=== PATIENT | male | born 1950 | race Caucasian/White ===

== ENCOUNTER 2023-08-24 16:02 | Inpatient (IN) | payer BC ==
[2023-08-24] MEDS ORDERED: dilTIAZem 125 MG/25 ML SDV ONE (16:07)
[2023-08-24] MEDS ORDERED: Furosemide 40 MG/4 ML VIAL ONE (16:29)
[2023-08-24 16:49] LABS: #Basophils 0.1 10x3/uL (0.0-0.2); #Monocytes 1.2 10x3/uL (0.0-1.1); #Neutrophils 11.1 10x3/uL (1.5-8.4); %Basophils 0.4 % (0.0-2.0); %Eosinophils 0.3 % (0.0-6.0); %Lymphocytes 9.4 % (18.0-47.0); %Monocytes 8.5 % (0.0-10.0); Hematocrit 39.2 % (38.8-50.0); Hemoglobin 13.2 g/dL (13.5-17.5); Mean Corpuscular HGB CONC 33.7 g/dL (32.0-36.0); Mean Corpuscular Hemoglobin 30.6 pg (27.0-33.0); Mean Platelet Volume 10.8 fl (7.4-10.4); Platelet Count 418 10x3/uL (150-450); RBC Distribution Width 12.2 % (11.5-14.5); Red Blood Cell (RBC) Count 4.31 10x6/uL (4.32-5.72); White Blood Cell (WBC) Count 13.8 10x3/uL (3.5-10.5)
[2023-08-24 17:01] LABS: ALT (SGPT) 101 U/L (8-55); AST (SGOT) 65 U/L (5-34); Albumin 3.7 g/dL (3.4-4.8); Alkaline Phosphatase 66 U/L (40-110); Anion Gap 17 mmol/L (10-20); BUN (Urea Nitrogen) 18 mg/dL (8.4-25.7); Bilirubin, Total 0.8 mg/dL (0.2-1.2); Calc. Creatinine Clearance 0 mL/min (70-130); Calcium 8.7 mg/dL (7.8-10.44); Carbon Dioxide 21 mmol/L (23-31); Chloride 100 mmol/L (98-107); Estimated GFR 86; Globulin 2.6 g/dL (2.4-3.5); Glucose 148 mg/dL (80-115); Protein, Total 6.3 g/dL (5.8-8.1); Sodium 134 mmol/L (136-145)
[2023-08-24 17:07] LABS: Troponin I 0.047 ng/mL (< 0.028)
[2023-08-24] MEDS ORDERED: Ondansetron PF 4 MG/2 ML Vial IVP PRN (17:32)
[2023-08-24] MEDS ORDERED: Acetaminophen 325 MG TAB PO PRN (17:32)
[2023-08-24 17:45] LABS: SARS-CoV-2 NAA Rapid Test Not Detected (NotDetected)
[2023-08-24 19:37] LABS: Troponin I 0.043 ng/mL (< 0.028)
[2023-08-24] MEDS ORDERED: dilTIAZem 125 MG in Sodium Chloride 0.9% 100 ML IVPB SCH (20:30)
[2023-08-24] MEDS: Apixaban 5 MG TAB PO SCH (20:45)
[2023-08-24 21:03] VITALS: BMI 30.5
[2023-08-25 04:54] LABS: #Eosinphils 0.1 10x3/uL (0.0-0.5); #Monocytes 1.2 10x3/uL (0.0-1.1); #Neutrophils 9.1 10x3/uL (1.5-8.4); %Basophils 0.3 % (0.0-2.0); %Eosinophils 0.9 % (0.0-6.0); %Lymphocytes 11.8 % (18.0-47.0); %Monocytes 9.7 % (0.0-10.0); %Neutrophils 76.5 % (40.0-75.0); Hematocrit 36.7 % (38.8-50.0); Hemoglobin 12.5 g/dL (13.5-17.5); Mean Corpuscular HGB CONC 34.1 g/dL (32.0-36.0); Mean Corpuscular Hemoglobin 30.9 pg (27.0-33.0); Mean Corpuscular Volume 90.6 fl (81.2-95.1); Mean Platelet Volume 10.7 fl (7.4-10.4); Platelet Count 385 10x3/uL (150-450); RBC Distribution Width 12.3 % (11.5-14.5); Red Blood Cell (RBC) Count 4.05 10x6/uL (4.32-5.72); White Blood Cell (WBC) Count 11.9 10x3/uL (3.5-10.5)
[2023-08-25 05:02] LABS: Anion Gap 14 mmol/L (10-20); BUN (Urea Nitrogen) 21 mg/dL (8.4-25.7); Calc. Creatinine Clearance 101 mL/min (70-130); Calcium 8.7 mg/dL (7.8-10.44); Carbon Dioxide 25 mmol/L (23-31); Chloride 101 mmol/L (98-107); Estimated GFR 92; Glucose 109 mg/dL (80-115); Potassium 3.6 mmol/L (3.5-5.1); Sodium 136 mmol/L (136-145)
[2023-08-25] MEDS: Furosemide 40 MG/4 ML VIAL SLOW IVP SCH ×2 (06:08→13:46)
[2023-08-25] MEDS: Apixaban 5 MG TAB PO SCH (08:38)
[2023-08-25] MEDS ORDERED: Communication Order-Pharmacy FS SCH (16:45)
[2023-08-25] MEDS: Atorvastatin Calcium 40 MG TAB PO SCH (22:42)
[2023-08-26 06:01] LABS: #Eosinphils 0.2 10x3/uL (0.0-0.5); #Neutrophils 8.3 10x3/uL (1.5-8.4); %Basophils 0.4 % (0.0-2.0); %Lymphocytes 13.5 % (18.0-47.0); %Monocytes 9.2 % (0.0-10.0); Hematocrit 39.3 % (38.8-50.0); Hemoglobin 13.3 g/dL (13.5-17.5); Mean Corpuscular HGB CONC 33.8 g/dL (32.0-36.0); Mean Corpuscular Hemoglobin 30.9 pg (27.0-33.0); Mean Corpuscular Volume 91.2 fl (81.2-95.1); Mean Platelet Volume 10.3 fl (7.4-10.4); Platelet Count 421 10x3/uL (150-450); RBC Distribution Width 12.1 % (11.5-14.5); Red Blood Cell (RBC) Count 4.31 10x6/uL (4.32-5.72); White Blood Cell (WBC) Count 11.2 10x3/uL (3.5-10.5)
[2023-08-26 06:13] LABS: Anion Gap 16 mmol/L (10-20); BUN (Urea Nitrogen) 26 mg/dL (8.4-25.7); Calc. Creatinine Clearance 92 mL/min (70-130); Carbon Dioxide 27 mmol/L (23-31); Chloride 100 mmol/L (98-107); Estimated GFR 82; Glucose 87 mg/dL (80-115); Potassium 3.7 mmol/L (3.5-5.1); Sodium 139 mmol/L (136-145)
[2023-08-26] MEDS ORDERED: Atropine Sulfate 1 mg/1 ml Vial ONE (07:16)
[2023-08-26] MEDS ORDERED: Nitroglycerin 50 MG/250 ML BOT 250 ML ONE (07:16)
[2023-08-26] MEDS ORDERED: Midazolam HCl 2 mg/2 ml Vial ONE ×2 (07:16→10:10)
[2023-08-26] MEDS ORDERED: Heparin 10,000 UNITS/ 10 ML VIAL ONE (07:16)
[2023-08-26] MEDS ORDERED: Adenosine 6 MG/2 ML VIAL ONE (07:16)
[2023-08-26] MEDS ORDERED: fentaNYL 50 mcg/mL 1 mL Vial ONE ×3 (07:16→10:09)
[2023-08-26] MEDS ORDERED: Lidocaine 1% (PF) 30 ML VIAL ONE ×2 (07:16→11:19)
[2023-08-26] MEDS ORDERED: Bivalirudin 250 MG VIAL ONE ×2 (07:20→09:49)
[2023-08-26] MEDS: Aspirin 81 mg Enteric Coated Tablet PO SCH (07:33)
[2023-08-26] MEDS: Furosemide 40 MG/4 ML VIAL SLOW IVP SCH ×2 (07:35→13:23)
[2023-08-26] MEDS ORDERED: Verapamil 5 MG/2 ML VIAL ONE (08:08)
[2023-08-26] MEDS ORDERED: TICAGRELOR 90 MG TABLET ONE (08:54)
[2023-08-26] MEDS ORDERED: Empagliflozin 10 MG TAB PO SCH (09:00)
[2023-08-26] MEDS ORDERED: Iopamidol 300 61% 100 ML VIAL FS ONE (09:46)
[2023-08-26] MEDS: Atorvastatin Calcium 40 MG TAB PO SCH (21:24)
[2023-08-27 04:53] LABS: #Basophils 0.1 10x3/uL (0.0-0.2); #Eosinphils 0.1 10x3/uL (0.0-0.5); #Monocytes 0.9 10x3/uL (0.0-1.1); #Neutrophils 9.8 10x3/uL (1.5-8.4); %Basophils 0.4 % (0.0-2.0); %Eosinophils 1.1 % (0.0-6.0); %Lymphocytes 12.8 % (18.0-47.0); %Neutrophils 77.9 % (40.0-75.0); Hematocrit 39.6 % (38.8-50.0); Hemoglobin 13.2 g/dL (13.5-17.5); Mean Corpuscular HGB CONC 33.3 g/dL (32.0-36.0); Platelet Count 459 10x3/uL (150-450); RBC Distribution Width 12.1 % (11.5-14.5); White Blood Cell (WBC) Count 12.6 10x3/uL (3.5-10.5)
[2023-08-27 04:57] LABS: ALT (SGPT) 81 U/L (8-55); AST (SGOT) 39 U/L (5-34); Albumin 3.5 g/dL (3.4-4.8); Alkaline Phosphatase 57 U/L (40-110); Anion Gap 15 mmol/L (10-20); BUN (Urea Nitrogen) 25 mg/dL (8.4-25.7); Bilirubin, Total 0.6 mg/dL (0.2-1.2); Calc. Creatinine Clearance 83 mL/min (70-130); Carbon Dioxide 28 mmol/L (23-31); Chloride 99 mmol/L (98-107); Estimated GFR 76; Globulin 3.1 g/dL (2.4-3.5); Glucose 108 mg/dL (80-115); Potassium 3.8 mmol/L (3.5-5.1); Protein, Total 6.6 g/dL (5.8-8.1); Sodium 138 mmol/L (136-145)
[2023-08-27] MEDS: Furosemide 40 MG/4 ML VIAL SLOW IVP SCH ×2 (06:00→15:05)
[2023-08-27] MEDS: Aspirin 81 mg Enteric Coated Tablet PO SCH (08:21)
[2023-08-27] MEDS: Clopidogrel Bisulfate 75 MG TAB PO SCH (08:22)
[2023-08-27] MEDS: Empagliflozin 10 MG TAB PO SCH (08:22)
[2023-08-28 03:58] LABS: #Basophils 0.1 10x3/uL (0.0-0.2); #Eosinphils 0.1 10x3/uL (0.0-0.5); #Monocytes 0.8 10x3/uL (0.0-1.1); #Neutrophils 7.7 10x3/uL (1.5-8.4); %Basophils 0.6 % (0.0-2.0); %Lymphocytes 17.9 % (18.0-47.0); %Monocytes 7.6 % (0.0-10.0); %Neutrophils 72.1 % (40.0-75.0); Hematocrit 41.2 % (38.8-50.0); Hemoglobin 13.8 g/dL (13.5-17.5); Mean Corpuscular HGB CONC 33.5 g/dL (32.0-36.0); Mean Corpuscular Hemoglobin 30.7 pg (27.0-33.0); Mean Corpuscular Volume 91.6 fl (81.2-95.1); Mean Platelet Volume 10.4 fl (7.4-10.4); Platelet Count 506 10x3/uL (150-450); RBC Distribution Width 12.2 % (11.5-14.5); White Blood Cell (WBC) Count 10.7 10x3/uL (3.5-10.5)
[2023-08-28 04:03] LABS: Anion Gap 16 mmol/L (10-20); BUN (Urea Nitrogen) 31 mg/dL (8.4-25.7); Calc. Creatinine Clearance 64 mL/min (70-130); Calcium 9.5 mg/dL (7.8-10.44); Carbon Dioxide 27 mmol/L (23-31); Chloride 99 mmol/L (98-107); Estimated GFR 64; Glucose 102 mg/dL (80-115); Sodium 138 mmol/L (136-145)
[2023-08-28] MEDS: Furosemide 40 MG/4 ML VIAL SLOW IVP SCH (06:23)
[2023-08-28] MEDS: Empagliflozin 10 MG TAB PO SCH (08:09)
[2023-08-28] MEDS: Aspirin 81 mg Enteric Coated Tablet PO SCH (08:09)
[2023-08-28] MEDS: Clopidogrel Bisulfate 75 MG TAB PO SCH (08:10)
[2023-08-28 13:16] VITALS: BP 117/64; TEMP 98.2
== END 2023-08-28 14:24 | disposition home or self-care (01) | DRG 325 ==
LOC: CSHERS 16:02 → CSHTELE 16:33
PROVIDERS: ADMIT Internal Medicine; ATTEND Internal Medicine
PROC: 4A023N7 Measurement of Cardiac Sampling and Pressure, Left Heart, Percutaneous Approach (ICD-10-PCS; principal; 2023-08-26)
PROC: 02F03ZZ Fragmentation in Coronary Artery, One Artery, Percutaneous Approach (ICD-10-PCS; 2023-08-26)
PROC: B2151ZZ Fluoroscopy of Left Heart using Low Osmolar Contrast (ICD-10-PCS; 2023-08-26)
PROC: B2111ZZ Fluoroscopy of Multiple Coronary Arteries using Low Osmolar Contrast (ICD-10-PCS; 2023-08-26)
PROC: 02C03ZZ Extirpation of Matter from Coronary Artery, One Artery, Percutaneous Approach (ICD-10-PCS; 2023-08-26)
DX: I50.43 Acute on chronic combined systolic (congestive) and diastolic (congestive) heart failure (principal); J96.21 Acute and chronic respiratory failure with hypoxia; I42.0 Dilated cardiomyopathy; I48.91 Unspecified atrial fibrillation; Z98.890 Other specified postprocedural states; Z79.899 Other long term (current) drug therapy; Z88.1 Allergy status to other antibiotic agents; I44.7 Left bundle-branch block, unspecified; Z79.82 Long term (current) use of aspirin; I25.10 Atherosclerotic heart disease of native coronary artery without angina pectoris; Z79.01 Long term (current) use of anticoagulants; Z11.52 Encounter for screening for COVID-19
CPT/HCPCS: 0715T; 36415; 80048; 80053; 83880; 84484; 85025; 92920; 93005; 93010; 93306; 93458; 94760; 94762; 96365; 96375; 99152; 99153; C1725; C1761; C1769; C1874; C1887; C1894; J0153; J0461; J0583; J1644; J1940; J2001; J2250; J3010; Q9967